=== PATIENT | female | born 1975 | race Caucasian/White ===

== ENCOUNTER 2020-06-09 08:54 | Emergency (ER) | payer OTHER | END 2020-06-09 09:34 | disposition home or self-care (01) | LOC: ED 08:54 | DX: S81.011D Laceration without foreign body, right knee, subsequent encounter (principal); Z88.6 Allergy status to analgesic agent; Z88.8 Allergy status to other drugs, medicaments and biological substances; X58.XXXD Exposure to other specified factors, subsequent encounter ==

== ENCOUNTER 2020-09-24 09:34 | Emergency (ER) | payer OTHER ==
[~2020-09-24] VITALS: Ht 177.8 cm; Wt 108.9 kg
[2020-09-24] MEDS ORDERED: HYDROCODONE-AC1 EAC1 PO (11:04)
[2020-09-24] MEDS ORDERED: NAPROSYN500 MG PO (11:04)
== END 2020-09-24 11:14 | disposition home or self-care (01) ==
LOC: ED 09:34
DX: S83.91XA Sprain of unspecified site of right knee, initial encounter (principal); S46.911A Strain of unspecified muscle, fascia and tendon at shoulder and upper arm level, right arm, initial encounter; F17.200 Nicotine dependence, unspecified, uncomplicated; Z88.8 Allergy status to other drugs, medicaments and biological substances; X58.XXXA Exposure to other specified factors, initial encounter; Y93.89 Activity, other specified; Y92.89 Other specified places as the place of occurrence of the external cause; Y99.8 Other external cause status

== ENCOUNTER 2020-12-23 13:21 | Emergency (ER) | payer OTHER ==
[~2020-12-23] VITALS: Wt 117.9 kg
[~2020-12-23 13:21] MED LIST: HYDROCODONE-AC1 EAC1 PO; NAPROSYN500 MG PO
== END 2020-12-23 14:52 | disposition home or self-care (01) ==
LOC: ED 13:21
DX: G56.01 Carpal tunnel syndrome, right upper limb (principal); E66.9 Obesity, unspecified; F17.200 Nicotine dependence, unspecified, uncomplicated; Z88.8 Allergy status to other drugs, medicaments and biological substances; Z88.6 Allergy status to analgesic agent; Z79.899 Other long term (current) drug therapy